=== PATIENT | female | born 1990 | race Caucasian/White ===

== ENCOUNTER 2020-07-31 10:57 | Emergency (ER) | payer OTHER, SELFPAY ==
--- NOTE | 2020-07-31 | XR_ITS ---
EXAMINATION: XR ELBOW, RIGHT. XR WRIST, RIGHT. CLINICAL INFORMATION: Pain COMPARISON: None TECHNIQUE: 3 views of the right elbow. 4 views of the right wrist. FINDINGS: Bone mineralization is normal. Normal alignment with no fracture of the elbow or wrist. No elbow joint effusion. No radiopaque foreign bodies. No significant degenerative findings. No erosions. IMPRESSION: Right elbow: Normal. Right wrist: Normal.
[2020-07-31 11:46] VITALS: BP 140/91; PULSE 68; RESP 16; TEMP 36.7; O2SAT 99; BMI 28.3
--- NOTE | 2020-07-31 12:17 | ED.EXTPRO ---
HPI - Extremity Problem General Chief complaint: Extremity Problem Stated complaint: SWOLLEN HAND Time Seen by Provider: 07/31/20 11:36 History of Present Illness HPI Narrative: patient complains of pain in the right hand and the right wrist which radiates to right elbow and is accompanied by a feeling of tingling in the hand worst in the index and middle fingers, no injury no weakness Related Data Previous Rx's Medication Instructions Recorded ibuprofen 800 mg PO Q8H PRN #20 tab 07/31/20 Allergies Allergy/AdvReac Type Severity Reaction Status Date / Time No Known Allergies Allergy Verified 07/31/20 12:10 Review of Systems Review of Systems: there is no weakness no fever no chills no chest pain no cough PMFSH Past Medical History Source: nursing notes reviewed Medical History (Updated 07/31/20 @ 13:38 by SATHYA Go) HTN (hypertension) Hyperparathyroidism Surgical History (Updated 07/31/20 @ 11:50 by Stephany Valladares) History of removal of ovarian cyst S/P parathyroidectomy Social History Social History Alcohol intake: never Smoking Status: Former smoker Smoked in Last 30 Days: No Use of substances other than those prescribed or required for medical reasons: No Advance Directives: No Advance Directives Information Provided: No Physical Exam Vital Signs and I&O and Narrative: Vital Signs and I&O: Vital Signs Temp 98.0 F 07/31/20 11:46 Pulse 68 07/31/20 11:46 Resp 16 07/31/20 11:46 BP 140/91 H 07/31/20 11:46 Pulse Ox 99 07/31/20 11:46 Intake & Output 07/30/20 07/31/20 07/31/20 18:59 06:59 18:59 Weight 92.079 kg Body Mass Index 28.3 patient is A&O x3, no acute distress and comfortable appearing Neck is supple Respiratory no respiratory distress Extremities the right upper extremity has full range of motion in all joints without any obvious swelling, the right wrist has full range of motion, no obvious swelling no redness no deformities, there was a positive Phalen's test There was no tenderness over the volar wrist as well as tenderness over the antecubital area, sensation motor and vascular were all intact Neuro is no numbness no weakness MDM - Extremity (Nontraumatic) Imaging Data ELBOW X-RAY: My impression: RADIOLOGIST REPORT WAS REVIEWED AND NO ACUTE FINDING in right wrist or right elbow Discharge Plan Discharge Clinical Impression: Carpal tunnel syndrome of right wrist Patient Disposition: Home, Self-Care Additional Instructions: we gave you a splint, you can use it for comfort or a specially at night it may reduce inflammation and discomfort in the wrist I believe symptoms are from carpal tunnel so we started an anti-inflammatory Follow with orthopedist for further evaluation Return any time any concerns Prescriptions: New ibuprofen 800 mg tablet 800 mg PO Q8H PRN (Reason: pain) Qty: 20 RF: 0 Referrals: Bereket Campos MD [Physician] - 2 days
== END 2020-07-31 13:58 | disposition home or self-care (01) ==
PROVIDERS: Emergency Provider Emergency Medicine
DX: G56.01 Carpal tunnel syndrome, right upper limb (principal); I10 Essential (primary) hypertension
CPT/HCPCS: 29125; 73070; 73110; 73130; 99283; 99284

== ENCOUNTER 2020-10-02 14:26 | Outpatient (REF) | payer OTHER, SELFPAY ==
--- NOTE | 2020-10-02 14:31 | US_ITS ---
EXAMINATION: US THYROID CLINICAL INFORMATION: Hypercalcemia. COMPARISON: None TECHNIQUE: Linear transducer mart-scale and color Doppler examination with attention to the region of the thyroid. FINDINGS: SIZE: Measurements of the thyroid lobes and nodules are given in sagittal, anteroposterior and transverse dimensions respectively. Right Thyroid Lobe: 5.7 x 1.9 x 1.9 cm, volume 10.8 mL. Parenchyma: The gland echotexture is homogeneous. Thyroid vascularity is increased. Left Thyroid Lobe: 5.1 x 1.5 x 2.0 cm, volume 8.0 mL. Parenchyma: The gland echotexture is homogeneous. Thyroid vascularity is increased. Isthmus: 0.3 cm in maximum AP dimension. RIGHT THYROID LOBE: There is 1 nodule seen. 1. Location: Inferior. Size: 0.4 x 0.3 x 0.2 cm. Nodule characteristics: Hypoechoic, smoothly marginated with no intranodular flow. ISTHMUS: No nodules. LEFT THYROID LOBE: There is 1 nodule seen. 1. Location: Inferior. Size: 0.3 x 0.3 x 0.4 cm. Nodule characteristics: Hypoechoic, smoothly marginated with no intranodular flow. NODES: No lymphadenopathy is seen in the tissue surrounding the thyroid gland. US/US thyroid IMPRESSION: Two subcentimeter nonsuspicious nodules. Rest of the thyroid gland appears unremarkable.
== END 2020-10-02 14:27 | disposition home or self-care (01) ==
LOC: HO.US 14:26
PROVIDERS: PCP Nurse Practitioner Family; Visit Provider Nurse Practitioner Family
DX: E83.52 Hypercalcemia (principal); Z98.890 Other specified postprocedural states
CPT/HCPCS: 76536

== ENCOUNTER 2020-10-29 09:59 | Outpatient (REF) | payer OTHER, SELFPAY ==
[2020-10-30 10:15] LABS: BV Int Neg Control Negative (Negative); BV Int Pos Control Positive (Positive)
[2020-11-01 08:47] LABS: C. trachomatis RNA TMA NOT DETECTED (NOT DETECTED); N. gonorrhoeae RNA TMA NOT DETECTED (NOT DETECTED)
== END 2020-10-29 10:00 | disposition home or self-care (01) ==
LOC: HO.LAB 09:59
PROVIDERS: PCP Nurse Practitioner Family; Referring Provider Nurse Practitioner Family; Visit Provider Advanced Practice Midwife
DX: Z12.4 Encounter for screening for malignant neoplasm of cervix (principal); Z87.42 Personal history of other diseases of the female genital tract; Z80.3 Family history of malignant neoplasm of breast
CPT/HCPCS: 87480; 87491; 87510; 87591; 87660; 88142

== ENCOUNTER 2020-10-30 09:39 | Outpatient (REF) | payer OTHER, SELFPAY ==
--- NOTE | 2020-10-30 09:41 | EMG_ITS ---
Right median and ulnar motor and sensory studies were performed. Right radial sensory study was performed and paraspinal muscles were tested. IMPRESSION: [id number] right median neuropathy across carpal tunnel. MD KRAIG Stevens/MARIA ALEJANDRA / [id number]
== END 2020-10-30 09:40 | disposition home or self-care (01) ==
LOC: HO.NEURO 09:39
PROVIDERS: PCP Nurse Practitioner Family; Visit Provider Nurse Practitioner Family
DX: R20.0 Anesthesia of skin (principal)
CPT/HCPCS: 95860; 95909

== ENCOUNTER 2020-11-04 11:26 | Outpatient (REF) | payer OTHER, SELFPAY ==
--- NOTE | 2020-11-04 11:30 | US_ITS ---
EXAMINATION: US PELVIS CLINICAL INFORMATION: History of ovarian cyst. COMPARISON: None TECHNIQUE: Ultrasound of the pelvis is performed using both transabdominal and transvaginal transducers along with Doppler. Transvaginal imaging is performed due to inadequate visualization transabdominally. FINDINGS: UTERUS: The uterus is retroflexed and measures 10.5 cm in length, 5.2 cm in AP and 7.4 cm wide. The double wall endometrial thickness is 0.5 mm. There are several echogenic calcifications seen in the endometrium. The uterus is smooth in contour and has normal myometrial echogenicity. No visible fibroid. ADNEXA: Both ovaries are visualized. There is normal color flow to the adnexa. There is no ovarian torsion. There is a small amount of free fluid in the cul-de-sac. Right ovary measures 3.4 x 3.1 x 2.3 cm and 12.7 mL volume. There is an echogenic focus measuring 0.6 x 0.5 x 0.7 cm. Left ovary measures 2.8 x 2.6 x 1.6 cm and volume 6.1 mL. It appears unremarkable. US/US OB transvaginal IMPRESSION: Enlarged retroflexed uterus with no focal lesion seen. Echogenic calcifications in the endometrium. There are echogenic foci in the right ovary as well.
--- NOTE | 2020-11-04 11:30 | US_ITS ---
EXAMINATION: US PELVIS CLINICAL INFORMATION: History of ovarian cyst. COMPARISON: None TECHNIQUE: Ultrasound of the pelvis is performed using both transabdominal and transvaginal transducers along with Doppler. Transvaginal imaging is performed due to inadequate visualization transabdominally. FINDINGS: UTERUS: The uterus is retroflexed and measures 10.5 cm in length, 5.2 cm in AP and 7.4 cm wide. The double wall endometrial thickness is 0.5 mm. There are several echogenic calcifications seen in the endometrium. The uterus is smooth in contour and has normal myometrial echogenicity. No visible fibroid. ADNEXA: Both ovaries are visualized. There is normal color flow to the adnexa. There is no ovarian torsion. There is a small amount of free fluid in the cul-de-sac. Right ovary measures 3.4 x 3.1 x 2.3 cm and 12.7 mL volume. There is an echogenic focus measuring 0.6 x 0.5 x 0.7 cm. Left ovary measures 2.8 x 2.6 x 1.6 cm and volume 6.1 mL. It appears unremarkable. US/US pelvic complete IMPRESSION: Enlarged retroflexed uterus with no focal lesion seen. Echogenic calcifications in the endometrium. There are echogenic foci in the right ovary as well.
== END 2020-11-04 11:27 | disposition home or self-care (01) ==
LOC: HO.US 11:26
PROVIDERS: Visit Provider Advanced Practice Midwife
DX: Z87.42 Personal history of other diseases of the female genital tract (principal); Z80.3 Family history of malignant neoplasm of breast
CPT/HCPCS: 76817; 76856

== ENCOUNTER → 2020-11-07 13:38 | Outpatient (BNVA) | payer OTHER, SELFPAY | PROVIDERS: PCP Nurse Practitioner Family; Visit Provider Advanced Practice Midwife | DX: Z30.430 Encounter for insertion of intrauterine contraceptive device (principal) | CPT/HCPCS: 58300; 81025; 99212 ==

== ENCOUNTER → 2020-12-01 12:36 | Outpatient (BNVA) | payer OTHER, SELFPAY | PROVIDERS: PCP Nurse Practitioner Family; Visit Provider Internal Medicine ==

== ENCOUNTER 2021-01-22 11:32 | Outpatient (REF) | payer OTHER, SELFPAY ==
[2021-01-22 14:27] LABS: Alanine Aminotransferase 19 U/L (0-31); Albumin Level 4.5 g/dL (3.5-5.0); Alkaline Phosphatase 53 U/L (39-117); Anion Gap 12 (12-20); Aspartate Amino Transferase 15 U/L (5-31); Bilirubin Total 0.7 mg/dL (0.0-1.0); Blood Urea Nitrogen 14 mg/dL (9-16); Calcium 9.4 mg/dL (8.4-10.2); Carbon Dioxide 27 mmol/L (22-29); Chloride 105 mmol/L (96-108); Cholesterol 194 mg/dL; Estimated Glomerular Filt Rate > 60; Glucose Fasting 97 mg/dL (60-99); HDL Cholesterol 39 mg/dL; LDL Cholesterol Calculated 144 mg/dl; Phosphorus 3.7 mg/dL (2.7-4.5); Potassium 4.6 mmol/L (3.3-5.1); Sodium 139 mmol/L (135-145); Total Protein 7.5 g/dL (6.5-8.0); Triglycerides 57 mg/dL
[2021-01-22 14:50] LABS: Vitamin D 25-OH Total 54.6 ng/mL (>30)
[2021-01-22 14:53] LABS: Vitamin D 25-OH Total 57.1 ng/mL (>30)
[2021-01-23 13:47] LABS: PTHI 49 pg/mL (14-64)
== END 2021-01-22 11:33 | disposition home or self-care (01) ==
LOC: HO.HMGCLDS 11:32
PROVIDERS: PCP Nurse Practitioner Family; Visit Provider Internal Medicine
DX: I10 Essential (primary) hypertension (principal); E83.52 Hypercalcemia; E21.3 Hyperparathyroidism, unspecified; E55.9 Vitamin D deficiency, unspecified
CPT/HCPCS: 36415; 80053; 80061; 82306; 83970; 84100; 84443

== ENCOUNTER → 2021-01-26 15:11 | Outpatient (BNVA) | payer OTHER, SELFPAY | PROVIDERS: PCP Nurse Practitioner Family; Visit Provider Advanced Practice Midwife | DX: Z12.4 Encounter for screening for malignant neoplasm of cervix (principal); Z30.431 Encounter for routine checking of intrauterine contraceptive device | CPT/HCPCS: 90471; 99212 ==

== ENCOUNTER → 2021-02-04 11:34 | Outpatient (BNVA) | payer OTHER, SELFPAY | PROVIDERS: PCP Nurse Practitioner Family; Visit Provider Internal Medicine ==

== ENCOUNTER → 2021-03-03 08:55 | Outpatient (BNVA) | payer OTHER, SELFPAY | PROVIDERS: PCP Nurse Practitioner Family; Visit Provider Orthopaedic Surgery | DX: G56.01 Carpal tunnel syndrome, right upper limb (principal) | CPT/HCPCS: 99202 ==

== ENCOUNTER 2021-03-20 10:53 | Day surgery (SDC) | payer OTHER, SELFPAY ==
[2021-03-20 12:02] VITALS: BMI 29.9
[2021-03-20 12:09] VITALS: BP 139/90; PULSE 88; RESP 16; TEMP 36.2; O2SAT 96
--- NOTE | 2021-03-20 13:13 | MHC.SHP ---
Pre-Procedural Eval Section B Chief Complaint: carpal tunnel syndrome Allergies: Allergies Allergy/AdvReac Type Severity Reaction Status Date / Time No Known Allergies Allergy Verified 03/03/21 09:09 Plan I have reviewed the history and physical and performed a pertinent physical examination on my patient. No changes have occurred unless specified.
--- NOTE | 2021-03-20 13:13 | W.PM.OPN ---
Operative Note Operative Note Date of Service: 03/20/21 Narrative: Preop diagnosis: 1. Right Carpal tunnel syndrome Postop diagnosis: same Procedure: 1. Right Carpal tunnel release Surgeon: Marie Meza MD Anesthesia: local block using 1% lidocaine with epinephrine Findings: Thickened transverse carpal ligament. EBL: Less than 5 mL Specimens: None Complications: None Disposition: Brought to recovery room in stable condition Plan: Follow-up for 7-10 days for wound check and suture removal She was very anxious during this procedure under local anesthesia. Should she need a left carpal tunnel release, the patient and I both think it might be best for her to be put to sleep. Indications: The patient is 30 years old, with right carpal tunnel syndrome that has been unresponsive to nonoperative management. The risks and benefits of operative treatment including but not limited to risk of damage to blood vessels, nerves, tendons, infection, persistent pain, persistent symptoms, or possible need for additional surgery were discussed with the patient and the patient wishes to proceed with surgery. Procedure: Once consent was obtained a local block was performed using a combination of 1% lidocaine with epinephrine. The patient was then brought back to the operating suite and placed on the operative table in supine position. A tourniquet was applied to the proximal aspect of the right upper extremity and the limb was prepped and draped in a standard surgical fashion. She was very anxious about the surgery. We reassured her that we would take good care of her. Once assured that we had a good block, a 1.5 cm longitudinal incision was made centered over the carpal tunnel. The incision was made through the skin to the subcutaneous tissues using a #15 blade. Dissection was made down to the level of the transverse carpal ligament with care being taken to protect the palmar cutaneous nerve. Once the transverse carpal ligament was clearly visualized, a longitudinal incision was made in the transverse carpal ligament 1st using a #15 blade, then using tenotomy scissors under direct visualization. Care was taken to look for and protect the motor branch of the median nerve when seen in this area. Once satisfied with our carpal tunnel release the wound was copiously irrigated with normal saline and hemostasis was obtained with a brief period of local pressure. The skin edges were reapproximated with some 5.0 nylon suture material and a sterile dressing was applied. The patient appears to have tolerated the procedure well and with no complications. All digits were well vascularized at the conclusion of the case.
[2021-03-20 13:50] VITALS: BP 149/93; PULSE 87; RESP 20; TEMP 36.8; O2SAT 99
== END 2021-03-20 14:08 | disposition home or self-care (01) ==
PROVIDERS: PCP Nurse Practitioner Family; Visit Provider Orthopaedic Surgery
PROC: (CPT 64721; principal; 2021-03-20 12:00)
DX: G56.01 Carpal tunnel syndrome, right upper limb (principal); I10 Essential (primary) hypertension; E78.5 Hyperlipidemia, unspecified; E21.3 Hyperparathyroidism, unspecified; E55.9 Vitamin D deficiency, unspecified; Z87.891 Personal history of nicotine dependence
CPT/HCPCS: 64721

== ENCOUNTER → 2021-04-01 10:02 | Outpatient (BNVA) | payer OTHER, SELFPAY | PROVIDERS: Visit Provider Orthopaedic Surgery | DX: G56.01 Carpal tunnel syndrome, right upper limb (principal); M79.89 Other specified soft tissue disorders | CPT/HCPCS: 99212 ==

== ENCOUNTER 2021-04-07 09:24 | Outpatient (REF) | payer OTHER, SELFPAY ==
[2021-04-07 13:08] LABS: Albumin Level 4.1 g/dL (3.5-5.0); Calcium 9.6 mg/dL (8.4-10.2)
[2021-04-07 13:44] LABS: Cholesterol 179 mg/dL; Estimated Glomerular Filt Rate > 60; HDL Cholesterol 40 mg/dL; LDL Cholesterol Calculated 122 mg/dl; Phosphorus 3.1 mg/dL (2.7-4.5); Triglycerides 85 mg/dL
[2021-04-09 13:06] LABS: Calcium (PTHI) 9.3 mg/dL (8.6-10.2); PTHI 43 pg/mL (14-64)
== END 2021-04-07 09:25 | disposition home or self-care (01) ==
LOC: HO.HMGCLDS 09:24
PROVIDERS: PCP Nurse Practitioner Family; Visit Provider Internal Medicine
DX: E21.3 Hyperparathyroidism, unspecified (principal); E78.5 Hyperlipidemia, unspecified; E55.9 Vitamin D deficiency, unspecified
CPT/HCPCS: 36415; 80061; 82040; 82306; 82310; 82565; 83970; 84100

== ENCOUNTER → 2021-04-08 12:23 | Outpatient (BNVA) | payer OTHER, SELFPAY | PROVIDERS: PCP Nurse Practitioner Family; Visit Provider Internal Medicine ==

== ENCOUNTER → 2021-04-09 09:22 | Outpatient (BNVA) | payer OTHER, SELFPAY | PROVIDERS: Visit Provider Advanced Practice Midwife ==

== ENCOUNTER → 2021-04-15 11:22 | Outpatient (BNVA) | payer OTHER, SELFPAY | PROVIDERS: Visit Provider Internal Medicine ==

== ENCOUNTER → 2021-05-06 10:46 | Outpatient (BNVA) | payer OTHER, SELFPAY | PROVIDERS: PCP Nurse Practitioner Family; Visit Provider Orthopaedic Surgery | DX: M79.89 Other specified soft tissue disorders (principal); G56.01 Carpal tunnel syndrome, right upper limb; R20.0 Anesthesia of skin; I10 Essential (primary) hypertension; E78.5 Hyperlipidemia, unspecified; E55.9 Vitamin D deficiency, unspecified; E21.3 Hyperparathyroidism, unspecified | CPT/HCPCS: 99212 ==

== ENCOUNTER 2021-08-03 10:05 | Outpatient (REF) | payer OTHER, SELFPAY ==
[2021-08-03 11:22] LABS: Appearance Urine HAZY; Color Urine YELLOW; Glucose Urine UA NEG (NEG); Leukocyte Esterase Urine NEG (NEG); Nitrite Urine NEG (NEG); UACC Culture Trigger NO; Urine Blood 3+ (NEG); Urine Ketones NEG (NEG); Urine Protein NEG (NEG-TRACE)
[2021-08-03 11:35] LABS: WBC Urine 0 /HPF (0-4)
[2021-08-03 11:36] LABS: Mucus Urine 2+ /LPF; Squamous Epithelial Cell Urine 2+ /LPF
[2021-08-03 12:00] LABS: Alanine Aminotransferase 18 U/L (0-31); Albumin Level 4.3 g/dL (3.5-5.0); Alkaline Phosphatase 48 U/L (39-117); Anion Gap 10 (12-20); Aspartate Amino Transferase 17 U/L (5-31); Bilirubin Total 1.1 mg/dL (0.0-1.0); Blood Urea Nitrogen 9 mg/dL (9-16); Carbon Dioxide 26 mmol/L (22-29); Chloride 108 mmol/L (96-108); Cholesterol 153 mg/dL; Estimated Glomerular Filt Rate > 60; Glucose Fasting 93 mg/dL (60-99); HDL Cholesterol 34 mg/dL; LDL Cholesterol Calculated 107 mg/dl; Potassium 4.6 mmol/L (3.3-5.1); Sodium 139 mmol/L (135-145); Total Protein 6.9 g/dL (6.5-8.0); Triglycerides 62 mg/dL
[2021-08-03 12:03] LABS: TSH reflex Free T4 0.74 uIU/mL (0.32-4.0)
== END 2021-08-03 10:06 | disposition home or self-care (01) ==
LOC: HO.HMGCLDS 10:05
PROVIDERS: PCP Nurse Practitioner Family; Visit Provider Nurse Practitioner Family
DX: I10 Essential (primary) hypertension (principal)
CPT/HCPCS: 36415; 80053; 80061; 81001; 84443

== ENCOUNTER 2022-01-20 13:58 | Outpatient (REF) | payer OTHER, SELFPAY ==
[2022-01-20 20:56] LABS: CT PCR NOT DETECTED (Not Detect.); NG PCR NOT DETECTED (Not Detect.)
[2022-01-21 13:02] LABS: BV Int Neg Control Negative (Negative); BV Int Pos Control Positive (Positive)
== END 2022-01-20 13:59 | disposition home or self-care (01) ==
LOC: HO.LAB 13:58
PROVIDERS: Visit Provider Advanced Practice Midwife
DX: R10.2 Pelvic and perineal pain (principal); N94.10 Unspecified dyspareunia; N89.8 Other specified noninflammatory disorders of vagina; Z20.2 Contact with and (suspected) exposure to infections with a predominantly sexual mode of transmission; Z32.02 Encounter for pregnancy test, result negative
CPT/HCPCS: 81003; 81025; 87480; 87491; 87510; 87591; 87660; 99212

== ENCOUNTER 2022-02-18 10:49 | Outpatient (REF) | payer OTHER, SELFPAY ==
--- NOTE | ~2022-02-18 | US_ITS ---
EXAMINATION: US PELVIS CLINICAL INFORMATION: Pelvic and perineal pain. COMPARISON: Pelvic ultrasound done on 11/04/2020. TECHNIQUE: Ultrasound of the pelvis is performed using both transabdominal and transvaginal transducers along with Doppler. Transvaginal imaging is performed due to inadequate visualization transabdominally. FINDINGS: Uterus: The uterus is anteverted and measures 8.6 x 4.7 x 6.4 cm. The double wall endometrial thickness is 8 mm. Echogenic calcifications within the endometrium is also noted, unchanged since 11/04/2020 The uterus is smooth in contour and has normal myometrial echogenicity. No visible fibroid. Note is made of presence of intrauterine contraceptive device, appear in good position. Adnexa: Both ovaries are visualized. . Trace amount of free fluid is noted within the pelvis. Right ovary measures 4.4 x 1.8 x 2.0 cm cm. Previously measured 3.4 x 3.1 x 2.3 cm. Solitary small echogenic focus is noted measuring 0.4 x 0.4 x 0.4 cm, unchanged, may represent small calcification versus fat. Left ovary measures 2.9 x 1.8 x 1.7 cm. Previously measures 2.8 x 2.6 x 1.6 cm. Solitary small echogenic focus is noted measuring 0.8 x 1.1 x 0.6 cm, new since prior study, may represent small calcification versus fat. US/US pelvic and transvaginal IMPRESSION: 1. Intrauterine contraceptive device appears in good position. Echogenic endometrial calcifications are noted, similar to prior study dated 11/04/2020. 2. Both ovaries appear normal in size. However, sub-5 mm echogenic focus is noted within the right ovary is, appears stable since prior study and new 1.1 cm echogenic focus within the left ovary. Both these 2 echogenic foci may represent calcification and/or fat, suspicious for mature cystic teratoma/dermoid cyst.
== END 2022-02-18 10:50 | disposition home or self-care (01) ==
LOC: HO.US 10:49
PROVIDERS: Visit Provider Advanced Practice Midwife
DX: R10.2 Pelvic and perineal pain (principal)
CPT/HCPCS: 76830; 76856

== ENCOUNTER → 2022-03-04 11:16 | Outpatient (BNVA) | payer OTHER, SELFPAY | PROVIDERS: PCP Nurse Practitioner Family; Visit Provider Advanced Practice Midwife | DX: Z13.89 Encounter for screening for other disorder (principal) ==

== ENCOUNTER 2022-04-01 10:06 | Outpatient (REF) | payer OTHER, SELFPAY ==
[2022-04-06 09:47] LABS: HPV mRNA E6/E7 rflx Not Detected (Not Detected)
== END 2022-04-01 10:07 | disposition home or self-care (01) ==
LOC: HO.LAB 10:06
PROVIDERS: PCP Nurse Practitioner Family; Visit Provider Advanced Practice Midwife
DX: Z01.419 Encounter for gynecological examination (general) (routine) without abnormal findings (principal); Z11.51 Encounter for screening for human papillomavirus (HPV)
CPT/HCPCS: 87624; 88142

== ENCOUNTER 2023-04-06 09:36 | Outpatient (REF) | payer OTHER, SELFPAY ==
[2023-04-06 11:11] LABS: MANUAL DIFF FLAG NO
[2023-04-06 11:22] LABS: Appearance Urine Clear; Color Urine Yellow; Glucose Urine UA Negative (Negative); Leukocyte Esterase Urine Small (1+) (Negative); Nitrite Urine Negative (Negative); PH 6.5 (5.0-9.0); Specific Gravity - Urine 1.025 (1.005-1.025); UMIC TRIGGER UACC YES; Urine Blood Trace (Negative); Urine Ketones Negative (Negative); Urine Protein Negative (Neg-Trace)
[2023-04-06 11:25] LABS: Basophils Absolute Auto 0.1 X10*3/uL (0.0-0.2); Basophils Percent Auto 0.7 % (0-2); Eosinophils Absolute Auto 0.7 X10*3/uL (0.0-0.4); Eosinophils Percent Auto 8.9 % (0-4); Hematocrit 41.5 % (37.0-47.0); Hemoglobin 13.7 g/dl (12.0-16.0); Imm Gran Abs Auto 0.02 X10*3/uL (0.00-0.03); Imm Gran Pct Auto 0.3 % (0.0-0.4); Lymphocytes Absolute Auto 2.4 X10*3/uL (1.2-4.9); Lymphocytes Percent Auto 32.4 % (20-40); Mean Corpuscular Hemoglobin 30.9 pg (27.0-33.0); Mean Corpuscular Volume 93.5 fL (80.0-98.0); Mean Platelet Volume 10.3 fL (9.4-12.3); Monocytes Absolute Auto 0.4 X10*3/uL (0.1-1.2); Monocytes Percent Auto 5.2 % (2-11); Neutrophils Absolute Auto 3.8 x10*3/uL (2.0-8.3); Neutrophils Percent Auto 52.5 % (45-73); Platelet Count 278 X10*3/uL (160-400); Red Blood Count 4.44 X10*6/uL (4.20-5.50); Red Cell Distribution Width 11.7 % (11.0-16.0); White Blood Count 7.3 X10*3/uL (4.8-10.8)
[2023-04-06 11:53] LABS: Bacteria Urine 1+ (None Seen); Hyaline Casts Urine 0-2 /LPF (0-2); UACC Culture Trigger YES; WBC Urine 0-5 /HPF (0-5)
[2023-04-06 11:56] LABS: Alanine Aminotransferase 20 U/L (0-31); Albumin Level 4.3 g/dL (3.5-5.0); Alkaline Phosphatase 49 U/L (39-117); Anion Gap 11 (12-20); Aspartate Amino Transferase 12 U/L (5-31); Bilirubin Total 1.1 mg/dL (0.0-1.0); Blood Urea Nitrogen 14 mg/dL (9-16); Calcium 9.6 mg/dL (8.4-10.2); Carbon Dioxide 26 mmol/L (22-29); Chloride 106 mmol/L (96-108); Cholesterol 186 mg/dL; Estimated Glomerular Filt Rate > 60; Glucose Fasting 96 mg/dL (60-99); HDL Cholesterol 39 mg/dL; LDL Cholesterol Calculated 136 mg/dl; Potassium 4.7 mmol/L (3.3-5.1); Sodium 138 mmol/L (135-145); Triglycerides 58 mg/dL
[2023-04-06 11:58] LABS: TSH reflex Free T4 1.12 uIU/mL (0.32-4.0)
== END 2023-04-06 09:37 | disposition home or self-care (01) ==
LOC: HO.HMGCLDS 09:36
PROVIDERS: PCP Nurse Practitioner Family; Visit Provider Nurse Practitioner Family
DX: Z00.00 Encounter for general adult medical examination without abnormal findings (principal)
CPT/HCPCS: 36415; 80053; 80061; 81001; 84443; 85025; 87086

== ENCOUNTER 2023-04-26 09:53 | Outpatient (REF) | payer OTHER, SELFPAY ==
[2023-04-26 15:20] LABS: CT PCR NOT DETECTED (Not Detect.); NG PCR NOT DETECTED (Not Detect.)
== END 2023-04-26 09:54 | disposition home or self-care (01) ==
LOC: HO.LNP 09:53
PROVIDERS: PCP Nurse Practitioner Family; Visit Provider Advanced Practice Midwife
DX: Z01.419 Encounter for gynecological examination (general) (routine) without abnormal findings (principal); Z20.2 Contact with and (suspected) exposure to infections with a predominantly sexual mode of transmission
CPT/HCPCS: 0353U

== ENCOUNTER 2023-05-09 11:26 | Outpatient (AMB) | payer OTHER, SELFPAY ==
[2023-05-09 11:32] VITALS: BP 110/70; PULSE 75; O2SAT 97; BMI 28.9
--- NOTE | 2023-05-09 11:32 | MHC.PC.OV ---
Vital Signs 05/09/23 11:32 Height 5 ft 11 in Weight 207 lb 4 oz BMI 28.9 BP 110/70 Blood Pressure Location Rt brachial Position Sitting Pulse 75 Pulse Source Pulse Oximeter Pulse Oximetry (%) 97 Oxygen Delivery Method Room Air Intake Visit Reasons: pe Allergies No Known Allergies Allergy (Verified 05/09/23 11:34) Medication List - Last Reconciled 05/09/23 by SHOAIB Hickman levonorgestrel vaginal losartan 25 mg PO DAILY 90 days Tobacco use date assessed: 05/09/23 Dental Screening Dental Screen Date: 05/09/23 Did you have a dental visit in the last 12 months?: Yes Did you have a dental problem in the last 6 months where you did not have access to dental care?: No Was dental information given to patient?: Patient has dentist HPI pe HPI Details Pt is here for a PE. Labs were already performed and are not bad. Has a blood bank worker. FORMERLY [facility] Medical History Counseling for HPV (human papillomavirus) vaccination Dyslipidemia HTN (hypertension) Hyperparathyroidism Numbness of right hand Vitamin D deficiency Surgical History History of carpal tunnel release History of removal of ovarian cyst S/P parathyroidectomy Family History Mother HTN (hypertension) Substance use disorder Paternal Grandmother Diabetes History of breast cancer Father Nephrolithiasis Maternal Grandmother Mental health disorder Social History Household Members: Children Alcohol intake: current Alcohol intake frequency: holidays/special occasions only Patient Tobacco Use Status: Former Tobacco user Quit Date: Quit in 2014 Years Smoked: 6 e-Cigarette/Vaping Use: Never Used Current occupational status: unemployed Current occupation: right handed Sexual orientation: Straight/Heterosexual Gender identity: Female Cognitive needs: No Hearing needs: No Vision needs: No Female Reproductive History Menstrual Age of Menarche: 13 Questionnaire Thrive Questionnaire Date Thrive assessed: 03/10/23 RICHARD-7 AMB Questionnaire RICHARD-7 Date RICHARD - 7 assessed: 05/11/22 Source: Developed by Drs. Liborio Bryant, Reyna Robertson, Yasmany Hayes and colleagues, with an educational jess from [employer]. Review of Systems Const Denies chills and Denies fever(s) Eyes Denies blurry vision ENT Denies vertigo, Denies dizziness and Denies sore throat Card Denies chest pain at rest, Denies chest pain with activity, Denies diaphoresis, Denies dyspnea and Denies dyspnea on exertion Resp Denies cough, Denies dyspnea, Denies dyspnea on exertion and Denies wheezing GI Denies abdominal pain, Denies melena, Denies hematochezia, Denies constipation, Denies diarrhea and Denies loose stools Denies hematuria Musc Denies numbness and Denies tingling Skin/Breast Denies lesions Neuro Denies vertigo, Denies dizziness, Denies numbness and Denies tingling Psych Denies anxiety, Denies depression, Denies homicidal ideation, Denies suicidal ideation and Denies other (substance abuse) Aller/Immun Denies wheezing Physical exam (Primary Care) Vital Signs: Last Vital Signs Pulse 75 05/09/23 11:32 BP 110/70 05/09/23 11:32 Pulse Ox 97 05/09/23 11:32 Oxygen Delivery Method Room Air 05/09/23 11:32 BMI result Body Mass Index 28.9 Tobacco/Smoking Status: Tobacco use Status Tobacco use date assessed 05/09/23 05/09/23 11:37 Patient Tobacco Use Status Former Tobacco user 05/09/23 11:37 e-Cigarette/Vaping Use Never Used 05/09/23 11:37 Thrive Assessment: Date of Thrive Assessment Date Thrive assessed 03/10/23 05/09/23 11:37 Const General: cooperative Nutritional Appearance: well nourished Orientation/consciousness: patient oriented x3 HENMT Head: Yes normal to inspection, Yes normocephalic and Yes atraumatic Ears: TM's normal bilaterally Eyes General: appearance normal, both eyes and all related structures Alignment and Position: alignment normal and position normal Neck Neck: Yes normal visual inspection and Yes no lymphadenopathy Thyroid: Thyroid normal Resp Effort & Inspection: normal respiratory effort Auscultation: clear to auscultation bilaterally Cardio Rate: regular rate Rhythm: regular rhythm Heart sounds: S1 normal heart sound present, S2 normal heart sound present and no murmurs GI Palpation (GI): Soft to palpation and nontender Auscultation: normal bowel sounds Skin Rashes: no rashes Neuro General: patient oriented x3, moves all extremities, no focal motor deficits and deep tendon reflexes 2+ bilaterally Romberg Test: Negative Psych Appearance: grossly normal Mental Status: mental status grossly normal Speech and movement: Normal speech and movement present Affect: normal affect Attitude: cooperative Thought process: Normal thought process present Thought content: Normal thought content present Insight: Good insight present (Psych) Judgement: Good judgement present (Psych) Assessment and Plan Assessment & Plan (1) Physical exam: Code(s): Z00.00 - Encounter for general adult medical examination without abnormal findings Plan The patient agreed to the use of a medical screener for this encounter. Scribed for SHOAIB Pascal by Racquel Spence medical screener, on 05/09/2023 at 11:45 EST. Orders: Orders Comprehensive [place]. Panel Fast Today Z00.00 - Encounter for general adult medical examination without abnormal findings TSH reflex Free T4 Today Z00.00 - Encounter for general adult medical examination without abnormal findings Complete Blood Count Auto Diff Today Z00.00 - Encounter for general adult medical examination without abnormal findings UA CC w/rflx Micro + Cult Today Z00.00 - Encounter for general adult medical examination without abnormal findings Lipid Panel Today Z00.00 - Encounter for general adult medical examination without abnormal findings Coding Level of Care Code Est Pt Prev Care 18-39y([id number]) Diagnoses Physical exam Z00.00
== END 2023-05-09 12:01 | disposition home or self-care (01) ==
PROVIDERS: PCP Nurse Practitioner Family; Visit Provider Nurse Practitioner Family
DX: Z00.00 Encounter for general adult medical examination without abnormal findings (principal)
CPT/HCPCS: 99395

== ENCOUNTER 2023-08-25 15:33 | Outpatient (AMB) | payer OTHER, SELFPAY ==
[2023-08-25 15:48] VITALS: BP 110/60; BMI 27.9
--- NOTE | 2023-08-25 15:48 | MHC.OFFVIS ---
Intake Vital Signs 08/25/23 15:48 Height 5 ft 11 in Weight 200 lb BMI 27.9 BP 110/60 Intake Visit Reasons: IUD removal Consult Intake Note: The patient agreed to use of a medical claims analyst during this encounter. Scribed for ISMAEL Vernon by Sangita Dillon medical claims analyst, on 08/25/2023 at 4:15 pm EST Allergies No Known Allergies Allergy (Verified 08/25/23 15:48) Is last menstrual period known: Yes Last menstrual period: 08/25/23 HPI HPI Comments History of Present Illness Details She presents to discuss IUD removal. She is considering a . She agrees to removal today. She was consented to procedure. FOR[facility]LY [facility] Medical History Counseling for HPV (human papillomavirus) vaccination Dyslipidemia Vitamin D deficiency Numbness of right hand HTN (hypertension) Hyperparathyroidism Surgical History History of carpal tunnel release History of removal of ovarian cyst S/P parathyroidectomy Family History Mother HTN (hypertension) Substance use disorder Paternal Grandmother Diabetes History of breast cancer Father Nephrolithiasis Maternal Grandmother Mental health disorder Social History Household Members: Children Alcohol intake: current Alcohol intake frequency: holidays/special occasions only Patient Tobacco Use Status: Former Tobacco user Quit Date: Quit in 2014 Years Smoked: 6 e-Cigarette/Vaping Use: Never Used Current occupational status: unemployed Current occupation: right handed Sexual orientation: Straight/Heterosexual Gender identity: Female Cognitive needs: No Hearing needs: No Vision needs: No Female Reproductive History Menstrual Age of Menarche: 13 Date of last menstrual period: 08/25/23 Review of Systems Const All systems reviewed & are unremarkable except as noted in HPI and below Physical Exam Vital Signs: Last Vital Signs BP 110/60 08/25/23 15:48 BMI result Body Mass Index 27.9 Const General: cooperative, no acute distress, well developed and alert External Female Exam: normal external appearance Speculum Exam - Vagina: normal appearance of the vagina and vaginal bleeding (small amount) Speculum Exam - Cervix: normal appearance of the cervix (IUD string visible.) Bimanual exam- vagina & uterus: normal bimanual exam, uterine size normal, uterine shape normal and non-tender Bimanual Exam- Adnexa, other: normal adnexae and no masses OB/external & speculum: vaginal bleeding (small amount) Office Procedures IUD Insert/Removal Details Details: She was counseled of risks including bleeding, pain, infection, and injury to bowel or bladder. The patient was placed in the dorsal lithotomy position. A speculum was inserted vaginally, and the cervix and strings were visualized at the os. A ring forcep was utilized, and the patient was asked to give a deep cough while the strings were grasped and gently tugged at the same time, removing the IUD device intact. Minimal bleeding was observed. All of the equipment was removed. The patient tolerated the procedure well and left the office in good condition. 79937-TTU Removal Procedure code (CPT) selection complete Assessment & Plan Assessment & Plan (1) Encounter for IUD removal: Code(s): Z30.432 - Encounter for removal of intrauterine contraceptive device Plan: Offered IUD removal today; she agrees. IUD successfully removed today. See procedure note. Monitor periods. Warnings reviewed with patient. Instructions given to call if temp >100.4, flu like sx, SOB, fatigue, lightheadedness/dizziness, abd pain, bloating or abd distention, bowel changes including rectal bleeding, bladder changes, foul odor or heavy vaginal bleeding. She will call office with any questions or concerns. RTO for AG 05/01/24. (2) Pre-conception counseling: Code(s): Z31.69 - Encounter for other general counseling and advice on procreation Plan: Instructed to start PNV. Rx sent to pharmacy. She will contact the office with any missed periods or concerns. Medications: New PNV,calcium [id number] acid 27 mg iron- 1 mg ( Vitamins Plus Low Iron) 1 tab PO DAILY 90 tabs 4RF Coding Level of Care Code Procedure Only Diagnoses Encounter for IUD removal Z30.432 Pre-conception counseling Z31.69 CPT Codes Details - CPT: 75570-XMZ Removal ([id number])
== END 2023-08-25 16:23 | disposition home or self-care (01) ==
PROVIDERS: PCP Nurse Practitioner Family; Visit Provider Advanced Practice Midwife
DX: Z30.432 Encounter for removal of intrauterine contraceptive device (principal)
CPT/HCPCS: 58301

== ENCOUNTER → 2023-08-25 15:33 | Outpatient (BNVA) | payer OTHER, SELFPAY | PROVIDERS: PCP Nurse Practitioner Family; Visit Provider Advanced Practice Midwife | DX: Z30.432 Encounter for removal of intrauterine contraceptive device (principal); Z31.69 Encounter for other general counseling and advice on procreation | CPT/HCPCS: 58301 ==